=== PATIENT | female | born 1965 | race American Indian/Alaskan Native ===

== ENCOUNTER 2016-08-29 15:00 | Inpatient (IN) | payer MEDICAID, OTHER ==
[2016-08-29] MEDS ORDERED: Aspirin 325 mg EC Tablets PO ONE (15:50)
[2016-08-29 16:33] LABS: RBC URINE 7 /hpf (0-3); URINE BILIRUBIN NEGATIVE (NEGATIVE); URINE BLOOD NEGATIVE (NEGATIVE); URINE COLOR YELLOW (YELLOW); URINE GLUCOSE (UA) NEG (Normal); URINE KETONE TRACE mg/dL (NEGATIVE); URINE LEUKOCYTE ESTERASE MOD Leu/uL (Negative); URINE PROTEIN 30 mg/dL (NEGATIVE); WBC URINE 24 /hpf (0-5)
--- NOTE | 2016-08-29 16:43 | ED PDOC ---
HPI: General Adult Time Seen by Provider: 08/29/16 15:35 Chief Complaint (Nursing): Lower Extremity Problem/Injury History Per: Patient History/Exam Limitations: no limitations Additional Complaint(s): Patient is a 50 year old female who states that she is homeless and that she is feeling depressed. Patient also states that she did not take her BP medication today. Pt also states that her urine is brown in color and malodorous. Pt states that sometimes she also has chest pain. Pt states she is also be using heroin again. Pt with leg surgery in past (has hardware/pins) and c/o chronic right leg pain. Patient also states that she did not take her blood pressure medication today. Pt w/ no additional complaints. PMD: Dr. Ramey Past Medical History Vital Signs: Last Vital Signs Temp 98.5 F 08/29/16 18:12 Pulse 82 08/29/16 18:58 Resp 16 08/29/16 18:12 BP 170/119 H 08/29/16 18:43 Pulse Ox 98 08/29/16 18:58 - Medical History PMH: Anemia, Anxiety, Arthritis, Asthma, Bipolar Disorder, Bronchitis, COPD, Depression, HTN, Paranoia, Personality Disorder, Schizophrenia, Seizures Denies: Diabetes, Hepatitis, HIV, Chronic Kidney Disease, Sexually Transmitted Disease - Family History Family History: States: Unknown Family Hx - Immunization History Hx Tetanus Toxoid Vaccination: No Hx Influenza Vaccination: No Hx Pneumococcal Vaccination: No - Home Medications Home Medications: Ambulatory Orders Medication Instructions Recorded Methadone 80 mg PO DAILY 05/25/16 Benztropine [Cogentin] 0.5 mg PO AMHS #30 tab 06/04/16 DiphenhydrAMINE [Benadryl] 25 mg PO HS PRN #14 cap 06/04/16 Nicotine 21 mg/24 hr [Nicoderm Cq] 1 patch TD DAILY #14 patch 06/04/16 Sertraline [Zoloft] 100 mg PO DAILY #14 tab 06/04/16 amLODIPine [Norvasc] 5 mg PO DAILY #7 tab 06/04/16 cloNIDine [Catapres] 0.2 mg PO BID #14 tab 06/04/16 risperiDONE [RisperDAL Tab] 2 mg PO AMHS #30 tab 06/04/16 Nitrofurantoin Macrocrystals 1 cap PO BID #14 cap 08/05/16 [Macrobid] Peg Electrolyte Lavage Solut 4,000 ml PO ONCE #1 bottle 08/05/16 [Golytely] - Allergies Allergies/Adverse Reactions: Allergies Allergy/AdvReac Type Severity Reaction Status Date / Time fluphenazine enanthate Allergy ANGIOEDEMA Verified 08/04/16 16:19 [From Prolixin] fluphenazine HCl Allergy ANGIOEDEMA Verified 08/04/16 16:19 [From Prolixin] haloperidol [From Haldol] Allergy ANGIOEDEMA Verified 08/04/16 16:19 haloperidol lactate Allergy ANGIOEDEMA Verified 08/04/16 16:19 [From Haldol] - Laboratory Results Result Diagrams: 08/29/16 15:51 08/29/16 15:51 - ECG ECG: Positive for: Interpreted By Me ECG Rhythm: Positive for: Normal QRS, Sinus Rhythm Rate: 82 O2 Sat by Pulse Oximetry: 98 Medical Decision Making Medical Decision Making: Initial Impression: Depression; using heroin again; HTN Initial Plan: Will get crisis evaluation, check labs, EKG, CXR 4:40 PM -- 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 Medical Clearance Note: Pt is medically stable for admission to the psychiatric unit. The patient does have a UTI; I recommend the patient receives Macrobid 100 mg PO BID x 1 week. For the patient's high blood pressure, I recommend Norvasc 5 mg PO QD and clonidine 0.2 mg PO TID. I also recommend a medicine consult during the inpatient stay to develop a nursing home plan for managing the patient's HTN and any other underlying medical conditions. Disposition - Clinical Impression Clinical Impression: Hypertension, Bipolar affective disorder, UTI (urinary tract infection), Heroin abuse, Drug abuse - Patient ED Disposition Is Patient to be Admitted: Yes - Disposition Disposition Time: 18:57 Condition: FAIR Patient Signed Over To: Robby Guevara Jr. - Pt Status Changed To: Hospital Disposition Of: Inpatient - Admit Certification Admit to Inpatient:: After my assessment, the patient will require hospitalization for at least two midnights. This is because of the severity of symptoms shown, intensity of services needed, and/or the medical risk in this patient being treated as an outpatient. Physician Patient Turnover - . Patient Signed Over To: Robby Guevara Jr.
[2016-08-29] MEDS ORDERED: Sodium Chloride 0.9% 1,000 ML IV SCH (16:45)
[2016-08-29 16:47] LABS: BASO % 0.4 % (0.0-2.0); EOS # 0.1 K/uL (0.0-0.7); EOS % 1.9 % (0.0-4.0); HEMATOCRIT 40.3 % (34.0-47.0); LYMPH # 2.4 K/uL (1.0-4.3); MEAN CELL VOLUME 90.8 fl (81.0-99.0); MEAN CORPUSCULAR HEMOGLOBIN 30.9 pg (27.0-31.0); MEAN PLATELET VOLUME 7.6 fl (7.2-11.7); MONO # 0.7 K/uL (0.0-0.8); MONO % 10.4 % (0.0-10.0); NEUT # 3.8 K/uL (1.8-7.0); NEUT % 53.3 % (50.0-75.0); NRBC % 0.1 % (0.0-0.0); RED CELL DISTRIBUTION WIDTH 13.9 % (11.5-14.5); WHITE BLOOD COUNT 7.1 K/uL (4.8-10.8)
[2016-08-29] MEDS ORDERED: cefTRIAXone (Rocephin) 250 mg Inj IM ONE (16:52)
[2016-08-29 16:57] LABS: ALB/GLOB RATIO 1.2 (1.0-2.1); ALCOHOL SERUM < 10 mg/dl (0-10); ALKALINE PHOSPHATASE 84 U/L (38-126); ALT/SGPT 72 U/L (9-52); AST/SGOT 64 U/L (14-36); BILIRUBIN,TOTAL 0.6 mg/dl (0.2-1.3); BLOOD UREA NITROGEN 15 mg/dl (7-17); CALCIUM 9.2 mg/dL (8.4-10.2); CARBON DIOXIDE 26 mmol/L (22-30); CHLORIDE 105 mmol/L (98-107); GFR AFRICAN-AMERICAN > 60; GLUCOSE,RANDOM 110 mg/dL (65-105); MAGNESIUM 1.8 MG/DL (1.6-2.3); POTASSIUM 3.7 MMOL/L (3.6-5.0); SODIUM 140 mmol/l (132-148); TOTAL PROTEIN 7.4 G/DL (6.3-8.2)
[2016-08-29] MEDS ORDERED: cefTRIAXone (Rocephin) 250 mg Inj ONE (17:55)
[2016-08-29 18:55] VITALS: O2SAT 98
[2016-08-29 19:29] VITALS: BMI 29.6
[2016-08-29] MEDS ORDERED: DiphenhydrAMINE 50 mg/ml Inj IM PRN (21:53)
[2016-08-29] MEDS ORDERED: Magnesium Hydroxide Susp 30 ml UD PO PRN (21:53)
[2016-08-29] MEDS ORDERED: Alum-Mag Hydrox-Simethicone Susp (30 mL) PO PRN (21:53)
--- NOTE | 2016-08-30 08:31 | RAD ---
PROCEDURE: CHEST RADIOGRAPH, 1 VIEW HISTORY: chest pain COMPARISON: None available. FINDINGS: LUNGS: Clear. PLEURA: No pneumothorax or pleural fluid seen. CARDIOVASCULAR: Normal. OSSEOUS STRUCTURES: No significant abnormalities. VISUALIZED UPPER ABDOMEN: Normal. OTHER FINDINGS: None. IMPRESSION: No active disease.
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
--- NOTE | 2016-08-31 08:56 | CARD ---
APPROVED REPORT EKG Measurement Heart [id number] <Conclusion> Normal sinus rhythm Prolonged QT Abnormal ECG
--- NOTE | 2016-08-31 13:56 | PCM.PYCHPN ---
Psychiatric Progress Note - Psychiatric Progress Note Patient seen today, length of contact: in treatment team Patient Chief Complaint: i feel like i might explode Problems Identified/Issues Discussed: pt c./o feeling irritable. pt with nausea. withdrawing from heroin currently. pt isolates in room. pt asking for seroquel to help her mood symptoms. Medication Change: Yes (change risperdal to seroquel) Medical Record Reviewed: Yes Mental Status Examination - Cognitive Function Orientation: Person, Place, Situation, Time Memory: Intact Attention: WNL Concentration: WNL Association: WNL Fund of Knowledge: [facility] Decription of patient's judgement and insights: fair - Mood Mood: Depressed, Anxious - Affect Affect: Constricted - Speech Speech: Appropriate - Formal Thought Process Formal Thought Process: Hallucinations Psychotic Thoughts and Behaviors: reports some ah. - Suicidal Ideation Suicidal Ideation: No - Homicidal Ideation Homicidal Ideation: No Goal/Treatment Plan - Goal/Treatment Plan Need for Continued Stay: Remain at risks for inpatient hospitalization, Severe functional impairment Progress Toward Problem(s) and Goals/Treatment Plan: polysubstance dependence bipolar disorder continue current treatment will start to taper ativan have started seroquel at pt's request for mood/psychosis Estimated Date of D/C: 09/04/16
[2016-08-31] MEDS: Trimethobenzamide 200 mg/2 mL Inj IM PRN (15:14)
[2016-08-31 16:08] LABS: T4 16.7 ug/dl (5.5-11.0)
[2016-08-31 16:22] LABS: THYROID STIMULATING HORMONE 0.42 mIU/ML (0.46-4.68)
[2016-08-31 16:24] LABS: CHOLESTEROL 129 mg/dL (0-199)
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
--- NOTE | 2016-09-01 14:27 | PCM.PYCHPN ---
Psychiatric Progress Note - Psychiatric Progress Note Patient seen today, length of contact: discussed with team Patient Chief Complaint: i feel a little better Problems Identified/Issues Discussed: pt less nauseated today. feels less anxious/irritable. no c/o medication side effects. sleeping is improved. Medication Change: Yes ( increase seroquel) Medical Record Reviewed: Yes Mental Status Examination - Cognitive Function Orientation: Person, Place, Situation, Time Memory: Intact Attention: WNL Concentration: WNL Association: WNL Fund of Knowledge: [facility] Decription of patient's judgement and insights: fair - Mood Mood: Depressed, Anxious - Affect Affect: Constricted - Speech Speech: Appropriate - Formal Thought Process Formal Thought Process: Hallucinations Psychotic Thoughts and Behaviors: reports some ah. - Suicidal Ideation Suicidal Ideation: No - Homicidal Ideation Homicidal Ideation: No Goal/Treatment Plan - Goal/Treatment Plan Need for Continued Stay: Remain at risks for inpatient hospitalization, Severe functional impairment Progress Toward Problem(s) and Goals/Treatment Plan: polysubstance dependence bipolar disorder continue current treatment will start to taper ativan tomorrow will increase seroquel Estimated Date of D/C: 09/04/16
[2016-09-02] MEDS: Albuterol HFA 90 mcg/actuation (8 g) INH PRN ×3 (03:41→16:48)
--- NOTE | 2016-09-02 10:59 | CP.PCM.PN ---
Subjective - Date & Time of Evaluation Date of Evaluation: 09/01/16 Time of Evaluation: 19:00 Objective - Vital Signs/Intake and Output Vital Signs (last 24 hours): Temp Pulse Resp BP Pulse Ox 96.8 F L 72 18 151/80 H 98 09/01/16 16:38 09/02/16 08:29 09/01/16 16:38 09/02/16 08:29 08/29/16 19:10 - Medications Medications: Current Medications Acetaminophen (Tylenol 325mg Tab) 650 mg PO Q4 PRN PRN Reason: Pain, moderate (4-7) Al Hydrox/Mg Hydrox/Simethicone (Maalox Plus 30 Ml) 30 ml PO Q4 PRN PRN Reason: Dyspepsia Albuterol (Ventolin Hfa 90 Mcg/Actuation (8 G)) 2 puff INH RQ4 PRN PRN Reason: Shortness of Breath Last Admin: 09/02/16 03:41 Dose: 2 puff Amlodipine Besylate (Norvasc) 5 mg PO DAILY [facility] Last Admin: 09/02/16 08:29 Dose: 5 mg Clonidine HCl (Catapres) 0.2 mg PO BID [facility] Last Admin: 09/02/16 08:29 Dose: 0.2 mg Diphenhydramine HCl (Benadryl) 50 mg IM Q6 PRN PRN Reason: Extrapyramidal S/S Unable PO Diphenhydramine HCl (Benadryl) 50 mg PO Q6 PRN PRN Reason: Extrapyramidal Symptoms Diphenhydramine HCl (Benadryl) 50 mg PO HS PRN PRN Reason: Sleep Last Admin: 08/31/16 06:53 Dose: 50 mg Gabapentin (Neurontin) 600 mg PO QID [facility] Last Admin: 09/02/16 08:28 Dose: 600 mg Ibuprofen (Motrin Tab) 600 mg PO Q8 PRN PRN Reason: Pain, moderate (4-7) Last Admin: 09/02/16 03:41 Dose: 600 mg Loperamide HCl (Imodium) 2 mg PO QID PRN PRN Reason: Diarrhea Last Admin: 09/01/16 20:55 Dose: 2 mg Lorazepam (Ativan) 2 mg IM Q4 PRN PRN Reason: Anxiety/Agitation,Unable PO Last Admin: 08/31/16 17:12 Dose: 2 mg Lorazepam (Ativan) 1 mg PO Q4 PRN PRN Reason: Anxiety/Agitation Last Admin: 09/01/16 23:57 Dose: 1 mg Lorazepam (Ativan) 1 mg PO BID [facility] Magnesium Hydroxide (Milk Of Magnesia) 30 ml PO HS PRN PRN Reason: Constipation Nicotine (Nicoderm Cq) 1 patch TD DAILY [facility] Last Admin: 09/02/16 10:47 Dose: 1 patch Ondansetron HCl (Zofran Tab) 4 mg PO Q6 PRN PRN Reason: Nausea/Vomiting Last Admin: 09/01/16 22:28 Dose: 4 mg Quetiapine Fumarate (Seroquel) 100 mg PO AMHS [facility] Last Admin: 09/02/16 08:28 Dose: 100 mg Sertraline HCl (Zoloft) 50 mg PO DAILY [facility] Last Admin: 09/02/16 08:28 Dose: 50 mg Trimethobenzamide HCl (Tigan) 200 mg IM Q6 PRN PRN Reason: Nausea/Vomiting Last Admin: 08/31/16 15:14 Dose: 200 mg Assessment and Plan (1) Polysubstance dependence including opioid type drug, episodic abuse Status: Acute (2) Schizoaffective disorder Status: Acute (3) Hypertension Status: Acute
--- NOTE | 2016-09-02 12:56 | PCM.PYCHPN ---
Psychiatric Progress Note - Psychiatric Progress Note Patient seen today, length of contact: discussed with team Patient Chief Complaint: i can get something for sleep? Problems Identified/Issues Discussed: pt reports she is still feeling anxious, mild nausea. states she did not sleep well. denies any auditory/visual hallucinations. Medication Change: Yes ( ambien at ) Medical Record Reviewed: Yes Mental Status Examination - Cognitive Function Orientation: Person, Place, Situation, Time Memory: Intact Attention: WNL Concentration: WNL Association: WNL Fund of Knowledge: WN Decription of patient's judgement and insights: fair - Mood Mood: Depressed, Anxious - Affect Affect: Constricted - Speech Speech: Appropriate - Formal Thought Process Formal Thought Process: No Impairment Psychotic Thoughts and Behaviors: denies auditory hallucinations - Suicidal Ideation Suicidal Ideation: No - Homicidal Ideation Homicidal Ideation: No Goal/Treatment Plan - Goal/Treatment Plan Need for Continued Stay: Remain at risks for inpatient hospitalization, Severe functional impairment Progress Toward Problem(s) and Goals/Treatment Plan: polysubstance dependence bipolar disorder continue current treatment will start to taper ativan - reduced to bid dosing today will continue current dose of seroquel perla at for insomnia encourage participation in therapeutic groups Estimated Date of D/C: 09/04/16 - Smoking Cessation Smoking Cessation Initiated: Yes
[2016-09-02] MEDS: Trimethobenzamide 200 mg/2 mL Inj IM PRN (13:05)
--- NOTE | 2016-09-02 23:08 | CP.PCM.PN ---
Subjective - Date & Time of Evaluation Date of Evaluation: 09/02/16 Time of Evaluation: 09:10 Objective - Vital Signs/Intake and Output Vital Signs (last 24 hours): Temp Pulse Resp BP Pulse Ox 97.9 F 80 20 130/87 98 09/02/16 17:00 09/02/16 17:00 09/02/16 17:00 09/02/16 17:00 08/29/16 19:10 - Medications Medications: Current Medications Acetaminophen (Tylenol 325mg Tab) 650 mg PO Q4 PRN PRN Reason: Pain, moderate (4-7) Al Hydrox/Mg Hydrox/Simethicone (Maalox Plus 30 Ml) 30 ml PO Q4 PRN PRN Reason: Dyspepsia Albuterol (Ventolin Hfa 90 Mcg/Actuation (8 G)) 2 puff INH RQ4 PRN PRN Reason: Shortness of Breath Last Admin: 09/02/16 16:48 Dose: 2 puff Amlodipine Besylate (Norvasc) 5 mg PO DAILY [facility] Last Admin: 09/02/16 08:29 Dose: 5 mg Clonidine HCl (Catapres) 0.2 mg PO BID [facility] Last Admin: 09/02/16 16:04 Dose: 0.2 mg Diphenhydramine HCl (Benadryl) 50 mg IM Q6 PRN PRN Reason: Extrapyramidal S/S Unable PO Diphenhydramine HCl (Benadryl) 50 mg PO Q6 PRN PRN Reason: Extrapyramidal Symptoms Diphenhydramine HCl (Benadryl) 50 mg PO HS PRN PRN Reason: Sleep Last Admin: 08/31/16 06:53 Dose: 50 mg Gabapentin (Neurontin) 600 mg PO QID [facility] Last Admin: 09/02/16 21:03 Dose: 600 mg Ibuprofen (Motrin Tab) 600 mg PO Q8 PRN PRN Reason: Pain, moderate (4-7) Last Admin: 09/02/16 03:41 Dose: 600 mg Loperamide HCl (Imodium) 2 mg PO QID PRN PRN Reason: Diarrhea Last Admin: 09/01/16 20:55 Dose: 2 mg Lorazepam (Ativan) 2 mg IM Q4 PRN PRN Reason: Anxiety/Agitation,Unable PO Last Admin: 05/15/17 17:12 Dose: 2 mg Lorazepam (Ativan) 1 mg PO Q4 PRN PRN Reason: Anxiety/Agitation Last Admin: 09/01/16 23:57 Dose: 1 mg Lorazepam (Ativan) 1 mg PO BID [facility] Last Admin: 09/02/16 16:03 Dose: 1 mg Magnesium Hydroxide (Milk Of Magnesia) 30 ml PO HS PRN PRN Reason: Constipation Nicotine (Nicoderm Cq) 1 patch TD DAILY [facility] Last Admin: 09/02/16 10:47 Dose: 1 patch Ondansetron HCl (Zofran Tab) 4 mg PO Q6 PRN PRN Reason: Nausea/Vomiting Last Admin: 09/01/16 22:28 Dose: 4 mg Quetiapine Fumarate (Seroquel) 100 mg PO AMHS [facility] Last Admin: 09/02/16 21:03 Dose: 100 mg Sertraline HCl (Zoloft) 50 mg PO DAILY [facility] Last Admin: 09/02/16 08:28 Dose: 50 mg Trimethobenzamide HCl (Tigan) 200 mg IM Q6 PRN PRN Reason: Nausea/Vomiting Last Admin: 09/02/16 13:05 Dose: 200 mg Zolpidem Tartrate (Ambien) 5 mg PO HS [facility] Last Admin: 09/02/16 21:13 Dose: 5 mg Assessment and Plan (1) Polysubstance dependence including opioid type drug, episodic abuse Status: Acute (2) Schizoaffective disorder Status: Acute (3) Hypertension Status: Acute
[2016-09-04] MEDS: Trimethobenzamide 200 mg/2 mL Inj IM PRN (08:41)
[2016-09-04 09:18] VITALS: RESP 18
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
[2016-09-04] MEDS: Lidocaine 5% Patch TD SCH (10:46)
--- NOTE | 2016-09-04 10:50 | PCM.PYCHPN ---
Psychiatric Progress Note - Psychiatric Progress Note Patient seen today, length of contact: discussed with team Patient Chief Complaint: i need something for pain and sleep Problems Identified/Issues Discussed: pt is loud, intrusive, seeking opiate and benzo medications while still stating she wants to go to rehab. her sleep is poor. mood remains labile. Medication Change: Yes (rain duncan. will cut off standing ativan after wednesday pm) Medical Record Reviewed: Yes Mental Status Examination - Cognitive Function Orientation: Person, Place, Situation, Time Memory: Intact Attention: WNL Concentration: WNL Association: WN Fund of Knowledge: [facility] Decription of patient's judgement and insights: fair - Mood Mood: Depressed, Anxious, Other (labile) - Affect Affect: Broad - Speech Speech: Appropriate - Formal Thought Process Formal Thought Process: No Impairment Psychotic Thoughts and Behaviors: denies auditory hallucinations - Suicidal Ideation Suicidal Ideation: No - Homicidal Ideation Homicidal Ideation: No Goal/Treatment Plan - Goal/Treatment Plan Need for Continued Stay: Remain at risks for inpatient hospitalization, Severe functional impairment Progress Toward Problem(s) and Goals/Treatment Plan: polysubstance dependence bipolar disorder continue current treatment ativan only at hs for two more nights, dc oral prn ativan will increase current dose of seroquel dc ambien and replace with trazodone refer to inpt rehab encourage participation in therapeutic groups Estimated Date of D/C: 09/04/16
[2016-09-04 15:48] VITALS: TEMP 96.6
[2016-09-04] MEDS: Naproxen 500 MG TAB PO SCH (20:47)
[2016-09-05] MEDS: Lidocaine 5% Patch TD SCH (09:34)
[2016-09-05] MEDS: Naproxen 500 MG TAB PO SCH (09:35)
[2016-09-05 09:37] VITALS: BP 170/113; PULSE 81
--- NOTE | 2016-09-05 09:37 | PCM.PYCHDC ---
Mental Status Examination - Mental Status Examination Orientation: Person, Place, Situation, Time Memory: Intact Mood: Anxious Affect: Broad Speech: Loud Attention: WNL Concentration: WNL Association: WNL Fund of Knowledge: WNL Formal Thought Process: No Impairment Description of patient's judgement and insight: superficial Psychotic Thoughts and Behaviors: denies auditory hallucinations Suicidal Ideation: No Current Homicidal Ideation?: No Plan: pt denies any suicidal or homicidal thoughts Discharge Summary - Discharge Note Reason for Hospitalization: substance use, legal stressors,reported she was having suicidal thoughts Psychiatric History (includes Medical, Family, Personal Hx): history of polysubstance dependence, mood do, multiple admission Laboratory Data: uds positive for cocaine and heroin Consultations:: List each consultation separately and include: 1. Reason for request. 2. Findings. 3. Follow-up Consultations: seen by the hospitalist Summary of Hospital Course include:: 1. Description of specific treatment plan utilized for patients during their course of treatmen. 2. Summarize the time- course for resolution of acute symptoms and/or regressed behaviors. 3. Describe issues identified and worked on during hospitalization. 4. Describe medication utilized. 5. Describe medical problems identified and treated. 6. Reassessment of suicide risk Summary of Hospital Course: pt was admitted to [facility] and oriented to the unit. pt placed on routine safety protocols. pt placed on an ativan taper, on clonidine and other medications for opioid withdrawal. pt was loud, seeking ativan frequently, seeking narcotic pain medications frequently and was loud, angry and threatening towards staff at times when her needs were not met. she was not exhibiting any auditory or visual hallucinations. she was denying any suicidal or homicidal thoughts at the time of discharged. she was discharged today because of her continued seeking of ativan/narcotics and her continued attempts to disrupt the treatment of others when she did not get those medications. she stated "i'm happy to leave because i want to smoke a cigarette." she was given prescriptions for 1 week with 3 refills. - Final Diagnosis (DSM 5) Condition upon Discharge: FAIR DSM 5: polysubstance dependence bipolar disorder Disposition: HOME/ ROUTINE Follow-up Treatment Plan: pt will arrange own follow up encouraed to abstain from alcohol, tobacco or other illicit substances call 911 if any suicidal or homicidal thoughts take medications as prescribed Prescriptions/Medication Reconciliation: amLODIPine [Norvasc] 5 mg PO DAILY #7 tab Gabapentin [Neurontin] 600 mg PO QID #28 tab Lidocaine 5% [Lidoderm] 1 ea TD DAILY #7 patch QUEtiapine [SEROquel] 150 mg PO AMHS #14 tab Sertraline [Zoloft] 50 mg PO DAILY #7 tab traZODone [Desyrel] 50 mg PO HS #7 tab - Smoking Cessation Smoking Cessation Medication prescribed: No Reason for not providing: declined - Antipsychotic Medications Pt discharged on 2 or more routine antipsychotic medications: No
== END 2016-09-05 10:00 | disposition home or self-care (01) | DRG 430 ==
LOC: H.ER 15:00 → H.ERHOLD 19:08 → H.PSYCH 21:19
PROVIDERS: ADMIT Psychiatry & Neurology Psychiatry; ATTEND Psychiatry & Neurology Psychiatry
PROC: GZHZZZZ Group Psychotherapy (ICD-10-PCS; principal; 2016-08-29)
PROC: GZ58ZZZ Individual Psychotherapy, Cognitive-Behavioral (ICD-10-PCS; 2016-08-29)
DX: F31.9 Bipolar disorder, unspecified (principal); F25.9 Schizoaffective disorder, unspecified; I10 Essential (primary) hypertension; F11.23 Opioid dependence with withdrawal; F14.90 Cocaine use, unspecified, uncomplicated; J44.9 Chronic obstructive pulmonary disease, unspecified; F12.10 Cannabis abuse, uncomplicated; J45.909 Unspecified asthma, uncomplicated; G47.00 Insomnia, unspecified; G89.29 Other chronic pain; M79.661 Pain in right lower leg; Z59.0 Homelessness; F17.210 Nicotine dependence, cigarettes, uncomplicated; Z91.410 Personal history of adult physical and sexual abuse

== ENCOUNTER 2016-10-09 16:38 | Emergency (ER) | payer MEDICAID, OTHER ==
[2016-10-09 16:38] VITALS: BMI 29.6
[2016-10-09 17:01] VITALS: BP 126/82; PULSE 75; RESP 18; TEMP 97.7; O2SAT 98
--- NOTE | 2016-10-09 17:50 | ED PDOC ---
Lower Extremity Pain/Injury Time Seen by Provider: 10/09/16 17:23 Chief Complaint (Nursing): Lower Extremity Problem/Injury Chief Complaint (Provider): right foot pain History Per: Patient History/Exam Limitations: no limitations Onset/Duration Of Symptoms: Days (x2 days) Current Symptoms Are (Timing): Still Present Additional Complaint(s): Marlon Pacheco is a 50 year old female with a previous medical history of HTN and asthma, who presents to the emergency department with a complaint of right foot pain exacerbated with walking associated with right foot swelling ongoing for 2 days. Stated she might have twisted her foot but denies any injury or trauma. PMD: Liam Ramey MD Past Medical History Reviewed: Historical Data, Nursing Documentation, Vital Signs Vital Signs: Last Vital Signs Temp 97.7 F 10/09/16 16:59 Pulse 75 10/09/16 16:59 Resp 18 10/09/16 16:59 BP 126/82 10/09/16 16:59 Pulse Ox 98 10/09/16 16:59 - Medical History PMH: Anemia, Anxiety, Arthritis, Asthma, Bipolar Disorder, Bronchitis, COPD, Depression, HTN, Paranoia, Personality Disorder, Schizophrenia, Seizures Denies: Diabetes, Hepatitis, HIV, Chronic Kidney Disease, Sexually Transmitted Disease - Surgical History Surgical History: - Family History Family History: States: Unknown Family Hx - Social History Current smoker - smoking cessation education provided: Yes (>10 cigarettes/day) Alcohol: Occasional - Immunization History Hx Tetanus Toxoid Vaccination: No Hx Influenza Vaccination: No Hx Pneumococcal Vaccination: No - Home Medications Home Medications: Ambulatory Orders Medication Instructions Recorded cloNIDine [Catapres] 0.2 mg PO BID #14 tab 06/04/16 Albuterol HFA [Ventolin HFA 90 2 puff INH RQ4 PRN inhaler 09/05/16 mcg/actuation (8 g)] Gabapentin [Neurontin] 600 mg PO QID #28 tab 09/05/16 QUEtiapine [SEROquel] 150 mg PO AMHS #14 tab 09/05/16 Sertraline [Zoloft] 50 mg PO DAILY #7 tab 09/05/16 - Allergies Allergies/Adverse Reactions: Allergies Allergy/AdvReac Type Severity Reaction Status Date / Time fluphenazine HCl Allergy ANGIOEDEMA Verified 10/09/16 16:58 [From Prolixin] haloperidol [From Haldol] Allergy ANGIOEDEMA Verified 10/09/16 16:58 Review of Systems ROS Statement: Except As Marked, All Systems Reviewed And Found Negative Constitutional: Negative for: Other (injury or trauma) Musculoskeletal: Positive for: Foot Pain (right sided associated with swelling) Physical Exam - Reviewed Nursing Documentation Reviewed: Yes Vital Signs Reviewed: Yes - Physical Exam Appears: Positive for: Well, Non-toxic, No Acute Distress Head Exam: Positive for: ATRAUMATIC, NORMAL INSPECTION, NORMOCEPHALIC Skin: Positive for: Normal Color, Warm, Dry Neck: Positive for: Normal, Painless ROM. Negative for: Supple Cardiovascular/Chest: Positive for: Regular Rate, Rhythm Respiratory: Positive for: Normal Breath Sounds. Negative for: Crackles, Rales , Rhonchi, Stridor Extremity: Positive for: Normal ROM, Tenderness (right dorsal view of foot and right ankle), Calf Tenderness (mild), Swelling (right ankle but predominant on right dorsal view of foot). Negative for: Other (changes in skin) Neurologic/Psych: Positive for: Alert, title i instructional assistant II-XII (intact), Oriented - ECG O2 Sat by Pulse Oximetry: 98 (RA) Pulse Ox Interpretation: Normal - Radiology X-Ray: Interpreted by Nm X-Ray Interpretation: No Acute Disease - Progress ED Course And Treament: will get xray and duplex US Medical Decision Making Medical Decision Making: Initial Impression: Right foot pain Initial Plan: * Tylenol 650 mg PO * Xray foot (right) * Workplace Trainer And Assessor consult-placed in surgical shoe and f.u with podiatry. * Reevaluation * US duplex:negative for DVT Time: 17:40 --Xray foot (right): no acute fracture noted. Most liekly early signs of stress fracture placed in surgical shoe and f.u with podiatry Tylenol in ED for pain. Scribe Attestation: Documented by Latricia Zeng, acting as a scribe for Migdalia Bower PA-C. Provider Scribe Attestation: All medical record entries made by the Scribe were at my direction and personally dictated by me. I have reviewed the chart and agree that the record accurately reflects my personal performance of the history, physical exam, medical decision making, and the department course for this patient. I have also personally directed, reviewed, and agree with the discharge instructions and disposition. Disposition - Clinical Impression Clinical Impression: Foot injury - Patient ED Disposition Is Patient to be Admitted: No Counseled Patient/Family Regarding: Need For Followup - Disposition Referrals: Podiatry Clinic [Outside] Disposition: Routine/Home Disposition Time: 19:00 Condition: STABLE Instructions: Foot Sprain (ED)
--- NOTE | 2016-10-09 18:18 | CP.PCM.CON ---
History of Present Illness - History of Present Illness History of Present Illness: 50 year female with PMHx of DM, HTN was seen in the ED for complaint of right foot pain. She states that she has had this pain for 2 days. Patient states that she has been wearing thong sandals for the past few days and has difficulty walking. She may have twisted her right foot but denies any trauma or injury. She denies n/sob/cp/f/c/or v. Past Patient History - Infectious Disease Hx of Infectious Diseases: None - Tetanus Immunizations Tetanus Immunization: Unknown - Past Medical History & Family History Past Medical History?: Yes - Past Social History Alcohol: Occasional - CARDIAC Hx Hypertension: Yes - PULMONARY Hx Asthma: Yes Hx Bronchitis: Yes Hx Chronic Obstructive Pulmonary Disease (COPD): Yes - NEUROLOGICAL Hx Seizures: Yes - HEENT Hx HEENT Problems: No - RENAL Hx Chronic Kidney Disease: No - HEMATOLOGICAL/ONCOLOGICAL Hx Anemia: Yes Hx Human Immunodeficiency Virus (HIV): No - INTEGUMENTARY Hx Dermatological Problems: No - MUSCULOSKELETAL/RHEUMATOLOGICAL Hx Arthritis: Yes - GENITOURINARY/GYNECOLOGICAL Hx Sexually Transmitted Disorders: No - PSYCHIATRIC Hx Anxiety: Yes Hx Bipolar Disorder: Yes Hx Depression: Yes Hx Paranoia: Yes Hx Schizophrenia: Yes - ANESTHESIA Hx Anesthesia: Yes Hx Anesthesia Reactions: No Meds Home Medications: Home Medication List Medication Instructions Recorded Confirmed Type Ibuprofen [Motrin Tab] 800 mg PO BID #30 tab 10/09/16 Rx Allergies/Adverse Reactions: Allergies Allergy/AdvReac Type Severity Reaction Status Date / Time fluphenazine HCl Allergy ANGIOEDEMA Verified 10/09/16 16:58 [From Prolixin] haloperidol [From Haldol] Allergy ANGIOEDEMA Verified 10/09/16 16:58 Physical Exam - Constitutional Appears: Well, Non-toxic, No Acute Distress - Extremities Exam Additional comments: Lower extremity focused exam: Vasc: DP and PT pulses palpable b/l. Skin temperature warm to warm from proximal to distal b/l. Neuro: Gross sensation intact b/l Ortho: Tenderness on palpation to dorsum of 1st interspace of right foot. No pain with compression of calf bilaterally. Derm: No open lesions, no erythema noted. Diffuse edema noted to the right foot. Skin is well hydrated. - Neurological Exam Neurological exam: Alert, Oriented x3 - Psychiatric Exam Psychiatric exam: Normal Affect, Normal Mood Results - Vital Signs Recent Vital Signs: Last Vital Signs Temp 97.7 F 10/09/16 16:59 Pulse 75 10/09/16 16:59 Resp 18 10/09/16 16:59 BP 126/82 10/09/16 16:59 Pulse Ox 98 10/09/16 18:14 Assessment & Plan - Assessment and Plan (Free Text) Assessment: 50 y/o female with right foot pain Plan: - Patient was seen and evaluated - Discussed plan in detail with attending Dr. Gan - X-rays reviewed: no fracture noted - Discussed with patient the possibility of stress fractures and that another xray may be taken in 10-14 days to help rule out - Patient educated on proper shoe gear - Right foot dressed with ELSI - Dispense surgical shoe. Advised to wear surgical shoe. - Will f/u 1 week in podiatry clinic
--- NOTE | 2016-10-09 18:58 | US ---
PROCEDURE: Right lower extremity venous duplex Doppler. HISTORY: mild calf tenderness with foot swelling COMPARISON: None available. TECHNIQUE: Common femoral, superficial femoral, popliteal and posterior tibial veins were evaluated. Flow was assessed with color Doppler, compressibility, assessment of phasic flow and augmentation response. FINDINGS: COMMON FEMORAL VEIN: Unremarkable. SUPERFICIAL FEMORAL VEIN: Unremarkable. POPLITEAL VEIN: Unremarkable. POSTERIOR TIBIAL VEIN: Unremarkable. OTHER FINDINGS: None. IMPRESSION: No evidence of deep venous thrombosis in the right lower extremity.
--- NOTE | 2016-10-10 14:53 | RAD ---
PROCEDURE: Right Foot Radiographs. HISTORY: injury COMPARISON: None. FINDINGS: BONES: No evidence of acute displaced fracture nor dislocation. Osseous structures appear intact. No obvious cortical destructive changes. Questionable postoperative sequela of the right. If pain persists, consider followup MRI. JOINTS: There is a moderate hallux valgus deformity. The slight irregularity of the right 1st metatarsal head. Rule out postoperative changes. 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 There is overlying medial soft tissue swelling at the level of the metatarsal head and 1st MTP joint. Slight lateral subluxation 2nd 3rd and 4th proximal phalanges SOFT TISSUES: As above OTHER FINDINGS: None. IMPRESSION: No acute fractures. Consider followup MRI if pain persists. There is a moderate hallux valgus deformity. The slight irregularity of the right 1st metatarsal head. Rule out postoperative changes. 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 There is overlying medial soft tissue swelling at the level of the metatarsal head and 1st MTP joint. Slight lateral subluxation 2nd 3rd and 4th proximal phalanges
== END 2016-10-09 19:46 | disposition home or self-care (01) ==
LOC: H.ER 16:38
DX: S99.921A Unspecified injury of right foot, initial encounter (principal); X58.XXXA Exposure to other specified factors, initial encounter; I10 Essential (primary) hypertension; E11.9 Type 2 diabetes mellitus without complications

== ENCOUNTER 2016-10-10 01:10 | Emergency (ER) | payer OTHER ==
[2016-10-10 01:11] VITALS: BMI 29.6
[2016-10-10 02:17] LABS: BASO % 0.5 % (0.0-2.0); EOS # 0.2 K/uL (0.0-0.7); EOS % 3.3 % (0.0-4.0); HEMATOCRIT 39.7 % (34.0-47.0); LYMPH # 1.7 K/uL (1.0-4.3); LYMPH % 33.5 % (20.0-40.0); MEAN CELL VOLUME 91.7 fl (81.0-99.0); MEAN CORPUSCULAR HEMOGLOBIN 29.9 pg (27.0-31.0); MEAN CORPUSCULAR HGB CONC 32.7 g/dL (33.0-37.0); MEAN PLATELET VOLUME 7.6 fl (7.2-11.7); MONO # 0.6 K/uL (0.0-0.8); MONO % 11.8 % (0.0-10.0); NEUT # 2.6 K/uL (1.8-7.0); NEUT % 50.9 % (50.0-75.0); NRBC % 0.2 % (0.0-0.0); RED CELL DISTRIBUTION WIDTH 14.4 % (11.5-14.5); WHITE BLOOD COUNT 5.1 K/uL (4.8-10.8)
[2016-10-10 02:26] LABS: ALCOHOL SERUM < 10 mg/dl (0-10); BLOOD UREA NITROGEN 15 mg/dl (7-17); CALCIUM 9.2 mg/dL (8.4-10.2); CARBON DIOXIDE 25 mmol/L (22-30); CHLORIDE 107 mmol/L (98-107); GFR AFRICAN-AMERICAN > 60; GLUCOSE,RANDOM 94 mg/dL (65-105); POTASSIUM 3.6 MMOL/L (3.6-5.0); SODIUM 140 mmol/l (132-148)
[2016-10-10] MEDS ORDERED: Albuterol 0.083% Inhal Sol (2.5 mg/3 mL) UD INH STA (02:34)
--- NOTE | 2016-10-10 03:02 | ED PDOC ---
HPI: Chest Pain Time Seen by Provider: 10/10/16 01:14 Chief Complaint (Nursing): Chest Pain Chief Complaint (Provider): Chest Pain History Per: Patient History/Exam Limitations: no limitations Onset/Duration Of Symptoms: Persistent Severity: Mild Associated Symptoms: denies: Nausea Additional Complaint(s): 50 y/o female patient presenting to the ED with chest pain and depression. PT states the chest pain started shortly before arriving to the ED but is now getting better. PT also states she has suffered from depression for a long time and yesterday and today she was suicidal. She states yesterday she wanted to cut her wrists but her friends took the knife away, and then again today she wanted to throw herself off a bridge. She states she does not see a doctor or psychiatrist for her depression and she does not take medication for it either. PT denies any nausea, vomiting and states she suffers from COPD, substance abuse and schizophrenia. Past Medical History Reviewed: Historical Data, Nursing Documentation, Vital Signs Vital Signs: Last Vital Signs Temp 97.9 F 10/10/16 01:51 Pulse 62 10/10/16 04:00 Resp 19 10/10/16 01:51 BP 150/92 H 10/10/16 01:51 Pulse Ox 96 10/10/16 04:00 - Medical History PMH: Anemia, Anxiety, Arthritis, Asthma, Bipolar Disorder, Bronchitis, COPD, Depression, HTN, Paranoia, Personality Disorder, Schizophrenia, Seizures Denies: Diabetes, Hepatitis, HIV, Chronic Kidney Disease, Sexually Transmitted Disease - Surgical History Surgical History: - Family History Family History: States: Unknown Family Hx - Immunization History Hx Tetanus Toxoid Vaccination: No Hx Influenza Vaccination: No Hx Pneumococcal Vaccination: No - Home Medications Home Medications: Ambulatory Orders Medication Instructions Recorded cloNIDine [Catapres] 0.2 mg PO BID #14 tab 06/04/16 Albuterol HFA [Ventolin HFA 90 2 puff INH RQ4 PRN inhaler 09/05/16 mcg/actuation (8 g)] Gabapentin [Neurontin] 600 mg PO QID #28 tab 09/05/16 QUEtiapine [SEROquel] 150 mg PO AMHS #14 tab 09/05/16 Sertraline [Zoloft] 50 mg PO DAILY #7 tab 09/05/16 Ibuprofen [Motrin Tab] 800 mg PO BID #30 tab 10/09/16 - Allergies Allergies/Adverse Reactions: Allergies Allergy/AdvReac Type Severity Reaction Status Date / Time fluphenazine HCl Allergy ANGIOEDEMA Verified 10/09/16 16:58 [From Prolixin] haloperidol [From Haldol] Allergy ANGIOEDEMA Verified 10/09/16 16:58 LORA Risk Score for UA/NSTEMI - LORA Risk Score Age > 64: NO 3 or more CAD Risk Factors: NO Known CAD (Stenosis greater than 50%): NO Aspirin use in past 7 days: NO Severe Angina: NO EKG ST changes greater than 0.5mm: NO Positive Cardiac Marker: NO LORA Score: 0 Risk %: 5% Wells Criteria for PE - Wells Criteria for Pulmonary Embolism Clinical Signs and Symptoms of DVT: No P.E is #1 Diagnosis, or Equally Likely: No Heart Rate >100: No Immobilization at least 3 days;Surgery previous 4 weeks: No Previous, objectively diagnosed PE or DVT: No Hemoptysis: No Malignancy w/treatment within 6 months, or palliative: No Total Score: 0 Review of Systems ROS Statement: Except As Marked, All Systems Reviewed And Found Negative Cardiovascular: Negative for: Chest Pain Respiratory: Negative for: Shortness of Breath Gastrointestinal: Negative for: Nausea, Vomiting Psych: Positive for: Anxiety, Depression, Suicidal ideation Physical Exam - Reviewed Nursing Documentation Reviewed: Yes Vital Signs Reviewed: Yes - Physical Exam Appears: Positive for: Non-toxic, No Acute Distress Skin: Positive for: Normal Color, Warm, Dry Cardiovascular/Chest: Positive for: Regular Rate, Rhythm. Negative for: Murmur Respiratory: Positive for: Normal Breath Sounds. Negative for: Respiratory Distress Neurologic/Psych: Positive for: Alert, Oriented, Mood/Affect ((+)Calmness, Sadness, Anxious ). Negative for: Motor/Sensory Deficits - Laboratory Results Result Diagrams: 10/10/16 02:10 10/10/16 02:10 - ECG ECG: Positive for: Interpreted By Me, Viewed By Me ECG Rhythm: Positive for: Normal QRS, Normal ST Segment, Sinus Rhythm. Negative for: ST/T Changes Rate: 62 O2 Sat by Pulse Oximetry: 96 (RA) Pulse Ox Interpretation: Normal Medical Decision Making Medical Decision Making: Time: 014 Initial impression: R/O ACS, Depression with Suicidal Ideation Initial plan: --EKG --DRUG SCREEN URINE --CHEST ONE VIEW --ALBUTEROL 2.5MG --ONDANSETRON 4MG IV --CONSTITUTIONAL LAW PROFESSOR --PEAK FLOW PRE/POST [place] --0145-Medical Clearance, Refer to Crisis Evaluation Vital signs are stable. Labs reviewed. In my opinion there are no current acute medical conditions that contraindicate the placement of this patient in a psychiatric unit. Scribe Attestation: Documented by Jessica Menon, acting as a scribe for Goldie Mendenhall MD MD Scribe Attestation: All medical record entries made by the Scribe were at my direction and personally dictated by me. I have reviewed the chart and agree that the record accurately reflects my personal performance of the history, physical exam, medical decision making, and the department course for this patient. I have also personally directed, reviewed, and agree with the discharge instructions and disposition. Disposition - Clinical Impression Clinical Impression: Chest pain, Depression - Patient ED Disposition Is Patient to be Admitted: Transfer of Care - Disposition Disposition: Transfer of Care Disposition Time: 07:00 Condition: FAIR Patient Signed Over To: Purnima Alexander Handoff Comments: pending crisis eval
[2016-10-10 06:29] VITALS: BP 147/86; PULSE 71; RESP 18; TEMP 98; O2SAT 95
--- NOTE | 2016-10-10 07:21 | ED PDOC ---
- Laboratory Results Result Diagrams: 10/10/16 02:10 10/10/16 02:10 - ECG O2 Sat by Pulse Oximetry: 95 (RA) Pulse Ox Interpretation: Normal Medical Decision Making Medical Decision Makin:00 Patient was signed out to me by Goldie Mendenhall MD pending crisis evaluation and final disposition. 08:07 Patient was cleared for discharge by psych. Scribe Attestation: Documented by Purnima Hale, acting as a scribe for Purnima Alexander MD. Provider Scribe Attestation: All medical record entries made by the Scribe were at my direction and personally dictated by me. I have reviewed the chart and agree that the record accurately reflects my personal performance of the history, physical exam, medical decision making, and the department course for this patient. I have also personally directed, reviewed, and agree with the discharge instructions and disposition. Disposition - Clinical Impression Clinical Impression: Atypical chest pain, Schizoaffective disorder, Polysubstance abuse - Disposition Referrals: [facility] [place] [facility] [Outside] Disposition: Routine/Home Disposition Time: 08:07 Condition: STABLE Instructions: Chest Pain (ED), Schizoaffective Disorder (ED), Polysubstance Abuse (ED)
--- NOTE | 2016-10-10 13:44 | RAD ---
PROCEDURE: CHEST RADIOGRAPH, 1 VIEW HISTORY: chest pain COMPARISON: Comparison chest dated 08/29/2016. FINDINGS: LUNGS: Minor bibasilar atelectasis PLEURA: No pneumothorax or pleural fluid seen. CARDIOVASCULAR: It appears enlarged aorta is slightly ectatic and uncoiled. OSSEOUS STRUCTURES: No significant abnormalities. VISUALIZED UPPER ABDOMEN: Normal. OTHER FINDINGS: None. IMPRESSION: Minor bibasilar atelectasis
--- NOTE | 2016-10-10 13:58 | CARD ---
APPROVED REPORT EKG Measurement Heart [id number] <Conclusion> Normal sinus rhythm Possible Left atrial enlargement Borderline ECG
== END 2016-10-10 08:31 | disposition home or self-care (01) ==
LOC: H.ER 01:10
DX: R07.89 Other chest pain (principal); F20.9 Schizophrenia, unspecified; F19.10 Other psychoactive substance abuse, uncomplicated; F31.9 Bipolar disorder, unspecified; F41.9 Anxiety disorder, unspecified; I10 Essential (primary) hypertension; J44.9 Chronic obstructive pulmonary disease, unspecified